=== PATIENT | female | born 1990 | race Caucasian/White ===

== ENCOUNTER 2021-07-19 15:09 | Outpatient (CLI) | payer OTHER, BC, SELFPAY | END 2021-07-19 15:10 | disposition home or self-care (01) | LOC: ANHLAB 16:02 | PROVIDERS: Visit Provider Obstetrics & Gynecology | DX: O20.0 Threatened abortion (principal) | CPT/HCPCS: 36415; 84702 ==

== ENCOUNTER 2021-07-21 15:26 | Outpatient (CLI) | payer OTHER, BC, SELFPAY | END 2021-07-21 15:27 | disposition home or self-care (01) | LOC: ANHOBOP 15:34 | PROVIDERS: Visit Provider Obstetrics & Gynecology | DX: Z34.90 Encounter for supervision of normal pregnancy, unspecified, unspecified trimester (principal); Z3A.00 Weeks of gestation of pregnancy not specified | CPT/HCPCS: 36415; 84702 ==

== ENCOUNTER 2021-08-12 13:55 | Outpatient (CLI) | payer OTHER, BC, SELFPAY ==
--- NOTE | 2021-08-12 14:07 | ECG_ITS ---
Measurements Intervals [place] Rate: 72 P: 39 WA: 153 QRS: 78 QRSD: 90 T: 5 QT: 343 QTc: 378 Interpretive Statements REDUCED ECG QUALITY BECAUSE OF BASELINE ARTIFACT SINUS RHYTHM GROSSLY NORMAL ECG NO PREVIOUS ECG AVAILABLE FOR COMPARISON Electronically Signed On 08-12-2021 15:55:57 CDT by Tommy Cheatham M.D.
== END 2021-08-12 13:56 | disposition home or self-care (01) ==
LOC: ANHSURGERY 13:59
PROVIDERS: Visit Provider Obstetrics & Gynecology
DX: Z01.818 Encounter for other preprocedural examination (principal); Z72.0 Tobacco use
CPT/HCPCS: 93005

== ENCOUNTER 2021-08-14 02:43 | Day surgery (SDC) | payer OTHER, BC, SELFPAY ==
[2021-08-07 09:48] VITALS: BMI 19.8
--- NOTE | 2021-08-07 10:18 | SUR.PREOP ---
Report to the Outpatient Waiting Room, entrance under the green pavilion located off [facility], at time 0830 on date 08/14/21. OR Time: 1030. - You and your visitor will be asked a series of questions to screen for COVID 19 for your protection. - Only one visitor is allowed at this time. - The patient visitor is requested to leave or wait in car when not with patient. - A mask is required within the hospital. Patients may have clear liquids (water, carbonated beverages, clear teas, apple juice) until 3 hours prior to surgery 0730 with a maximum of 20 ounces. - No food from midnight until time of surgery - Infants may have breast milk until 4 hours before surgery, infant formula 6 hours prior to surgery. - Children will be allowed to drink immediately following surgery. If applicable, please bring a bottle or sippy cup to assist with drinking. Juice, water, soda, and popsicles are readily available. For infants on formula, please bring formula the day of surgery. Pacifiers are allowed. Take the following medications with a SIP of water the morning of surgery: NA Medications to discontinue per physician Clarify discontinuing Ibuprofen per Dr. Melo's instructions. Date to take last dose Per Dr. Melo Please no make-up, nail korean, hairspray, perfume, deodorant, or body powder the day of surgery. No jewelry (including any body piercings) or valuables the day of surgery, leave them at home. Please take a shower or bath the night before, or the morning of, surgery with an antibacterial soap. Wear comfortable, loose fitting clothing. Children are encouraged to wear pajamas. - Jewelry must be removed prior to entering the operating room. Rings and piercings that are not removed may be cut off. - The hospital will not accept responsibility for valuables. - Please leave all valuables, including medications, at home the day of surgery. If you are going home after surgery, a licensed log truck driver must drive you home. - NO public transportation without another adult. - We recommend that an adult stay with you for 24 hours following discharge. - We also recommend that you do not drive, make important decision, drink alcoholic beverages, or take any drugs that were not prescribed by your health care provider for at least 24 hours after your discharge time. For Pediatric surgeries, we recommend two adults accompany the child home (only one inside the building at this time). Follow any additional instructions given to you from your surgeon. If you or anyone in your household have experienced Covid symptoms in the past week, please notify your surgeon or the nurse liaison at the phone number below for possible testing. Telephone instructions given to patient and asked if any additional questions and then verbalized understanding. Patient advised to call surgeon office or pre surgery nurse liaison [phone] if any additional questions.
[2021-08-14] VITALS (8 sets, daily range): BP systolic 99–118; BP diastolic 59–74; PULSE 52–80; RESP 12–18; TEMP 36.6–37.4; O2SAT 100
[2021-08-14] MEDS: LACTATED RINGERS 1,000 ML 30 ML IV CONT ×2 (09:00→12:20)
[2021-08-14] MEDS: KETOROLAC 15 MG/ML VIAL (*BKC) IV PUSH (09:00)
[2021-08-14] MEDS: ACETAMINOPHEN 500 MG TABLET 1000 MG PO (09:00)
--- NOTE | 2021-08-14 09:58 | P.PNAN_ITS ---
Anes - Initial Pre Proc Eval Procedure: Operation Date: 08/14/21 10:30 Proposed Procedures p Laparoscopic Left Ovarian Cystectomy - Jaime Melo MD Date/Time: 08/14/21 09:58 Surgeon: Jaime Melo MD Pre Op Diagnosis: dermoid cyst Patient Data Age: 31 Gender: F Height: 1.6 m Weight: 49.8 kg Last Vital Signs Temp 99.3 F 08/14/21 08:44 Pulse 66 08/14/21 08:44 Resp 18 08/14/21 08:44 BP 105/71 08/14/21 08:44 Pulse Ox 100 08/14/21 08:44 O2 Del Method Room Air 08/14/21 08:44 Allergies Allergy/AdvReac Type Severity Reaction Status Date / Time strawberry Allergy Mild scratchy Verified 08/14/21 09:03 throat Home Medications Medication Instructions Recorded Confirmed Type ibuprofen 300 mg tablet 600 mg PO Q6H PRN Pain 08/07/21 08/14/21 History Patient hx anesthesia problems: none Family hx anesthesia problems: none Results Review: All pre-operative results and documents have been reviewed as part of the pre- operative evaluation. [facility] Past Medical History Medical History (Updated 08/14/21 @ 09:58 by Reese Chow MD) Anxiety Depression Migraine Social History Social History Smoking packs per day: 1 Smoking cigarettes per day: 20.0 Years smoked: 21 Smoking pack-years: 21.00 Smoking status: Current every day smoker Tobacco type: cigarettes Alcohol intake: current Drinks per week: 2 Living arrangements: with family Spiritual care concerns: No Anes - Eval Final PreProcedure Day of Procedure 08/14/21 09:58 Patient weight: normal Heart: regular rate and rhythm Lungs: clear to auscultation Airway: Mallampati scale class II Neurological: alert and oriented Last oral intake: >/= 8 hours ASA classification: II Emergent: no Anesthetic plan: proceed Anesthesia type and monitoring: general ETT and standard monitoring Results Review: All pre-operative results and documents have been reviewed as part of the pre-operative evaluation. Informed Consent: The patient's anesthetic plan and its attendant risks and benefits were discussed with the patient/family/POA. Questions were solicited and answers provided to the satisfaction of the patient/family/POA.
--- NOTE | 2021-08-14 10:20 | WPDHPUPDATE1 ---
History and Physical Update Update Date/Time: 08/14/21 10:20 History and Physical has been reviewed, including an updated exam of the patient. There are NO changes in the patient's condition. Risks, benefits, and alternatives have been discussed and questions answered. Patient agrees to proceed with procedure.
--- NOTE | 2021-08-14 12:26 | W.PM.PROC2 ---
Procedure Note - Detailed Date of Procedure 08/14/21 Pre-op Diagnosis dermoid cyst Post-op Diagnosis Same (And endometriosis, pelvic adhesions) Procedure Performed Laparoscopic left ovarian cystectomy, peritoneal biopsy, adhesiolysis. Surgeon Jaime Melo MD Anesthesia General Indications Pelvic pain Findings Left ovarian hemorrhagic cyst and dermoid cyst together occupying about 5-6 cm space, there was endometrial implants throughout posterior cul-de-sac and right left pelvic sidewall. Normal-appearing right ovary, normal appearing fallopian tubes, uterus was adherent to the anterior pelvic wall. Description of Procedure The patient was taken to the operating room. She was prepped and draped in the dorsal lithotomy position after induction general anesthesia. A 5 mm incision was made with a scalpel on the abdominal skin in the left upper quadrant of the abdomen. A 5 mm trocar was inserted into the intra-abdominal cavity under direct visualization the scope. In the same fashion a 11 mm left lower quadrant trocar was inserted and a 11 mm infraumbilical trocar was inserted. 30 minutes of adhesiolysis was performed initially to free the ovary up from the left pelvic sidewall. The left ovary contained a hemorrhagic cyst and a dermoid cyst. Both were removed sharp and blunt dissection. A peritoneal biopsy was performed. A small 5 mm diameter area was removed from the posterior cul-de-sac of the pelvis right of the rectum. There was endometriosis throughout the pelvis. Interceed was placed over the left hemipelvis where the dissection and adhesiolysis had occurred. The left ureter was exposed. It was intact. The pelvis was irrigated. The pneumoperitoneum was reduced. The trocars were removed. Skin was closed with subcuticular 4 micro. The patient's incisions were covered with Dermabond. She was taken recovery room in stable condition. Sponge lap and needle counts were correct x2. Estimated Blood Loss -50.0 Complications No immediate complications Condition Stable Disposition Same day
[2021-08-14] MEDS: fentaNYL CITRATE INJ (*CRX) 100 MCG/2 ML VIAL 25 MCG IV PUSH ×2 (12:34→12:59)
--- NOTE | 2021-08-14 12:46 | SUR.PHASEI ---
1245: Simple mask removed.
[2021-08-14] MEDS: oxyCODONE HCL (*CRX) 5 MG TAB IR PO (13:24)
== END 2021-08-14 14:13 | disposition home or self-care (01) ==
PROVIDERS: Visit Provider Obstetrics & Gynecology
PROC: (CPT 49320; principal; 2021-08-14 10:30)
DX: D27.1 Benign neoplasm of left ovary (principal); N73.6 Female pelvic peritoneal adhesions (postinfective); N80.3 Endometriosis of pelvic peritoneum; N80.1 Endometriosis of ovary; R10.2 Pelvic and perineal pain; F17.210 Nicotine dependence, cigarettes, uncomplicated
CPT/HCPCS: 58662; 88305; A9270; J1100; J1885; J2250; J2405; J2704; J2710; J3010; J7030; J7120

== ENCOUNTER 2022-01-11 08:36 | Emergency (ER) | payer OTHER, BC, SELFPAY ==
[2022-01-11 08:46] VITALS: BP 106/61; PULSE 86; RESP 24; TEMP 37.6; O2SAT 100
--- NOTE | 2022-01-11 08:59 | ED.URI ---
HPI - URI/Sore Throat General Chief Complaint: Upper Respiratory Infection Stated Complaint: Fever, Sore Throat Time Seen by Provider: 01/11/22 08:59 History of Present Illness HPI Narrative: 31-year-old female presented for complaints of headache, body aches, sinus pressure/congestion, cough, fever/chills. Onset last night. She endorses her tested positive for COVID 6 days ago. She denies shortness of breath, wheezing, vomiting or diarrhea. She endorses her temperature was a 103? last night. She is not taking anything for symptoms. She is a current smoker 2 packs per day. Related Data Home Medications Medication Instructions Recorded Confirmed ibuprofen 300 mg tablet 600 mg PO Q6H PRN Pain 08/07/21 08/14/21 Allergies Allergy/AdvReac Type Severity Reaction Status Date / Time strawberry Allergy Mild scratchy Verified 08/14/21 09:03 throat Review of Systems Review of Systems: ROS per HPI [facility] Past Medical History Medical History Anxiety Depression Migraine Social History Social History Smoking packs per day: 1 Smoking cigarettes per day: 20.0 Years smoked: 21 Smoking pack-years: 21.00 Smoking status: Current every day smoker Tobacco type: cigarettes Alcohol intake: current Drinks per week: 2 Spiritual care concerns: No Exam Narrative: GENERAL: Ill-appearing, no acute distress. EYES: conjunctivae clear ENT: Mucous membranes moist. TMs pearly babin with normal light reflex bilaterally; no tragal tenderness. Oropharynx erythematous without lesions. Tonsils enlarged 1+ and without exudate. No drooling, no hoarseness, no trismus, uvula midline. No tripod positioning, hot potato voice, or soft palate swelling. CHEST: Clear to auscultation, breath sounds equal. No respiratory distress, speaks in full sentences. HEART: Regular rate and rhythm. No murmur heard. SKIN: Warm, dry, no rash. NEURO: Alert and oriented x3. Course Course Emergency Course: Patient is aware of diagnosis, understands and agrees to treatment plan. Anticipatory guidance given. Patient agrees to follow-up as directed and is aware of reasons to seek care at the emergency department. Portions of this record may have been created with voice recognition software Level of Care: Express Care Visit Vital Signs Vital signs: Vital Signs Temperature 99.6 F 01/11/22 08:46 Pulse Rate 86 01/11/22 08:46 Respiratory Rate 24 H 01/11/22 08:46 Blood Pressure 106/61 01/11/22 08:46 Pulse Oximetry 100 01/11/22 08:46 Oxygen Delivery Room Air 01/11/22 08:46 Temperature 99.6 F 01/11/22 08:46 Pulse Rate 86 01/11/22 08:46 Respiratory Rate 24 H 01/11/22 08:46 Blood Pressure 106/61 01/11/22 08:46 Pulse Oximetry 100 01/11/22 08:46 Oxygen Delivery Room Air 01/11/22 08:46 MDM - URI/Sore Throat MDM Narrative Medical decision making narrative: covid positive, negative flu. Results reviewed with pt. Advise supportive treatments. Patient is appropriate for outpatient treatment and follow-up. Differential Diagnosis Differential diagnosis: Likely upper respiratory infection, viral infection and pharyngitis Discharge Plan Discharge Clinical Impression: COVID-19 Patient Disposition: Home, Self-Care Condition: Stable Instructions: How to Stop Smoking (ED), COVID-19 (Coronavirus Disease 2019) (ED) Additional Instructions: Your rapid COVID test was positive today. The following recommendations have been made by the CDC and local Health Departments, regarding COVID-19: -Those individuals with mild cases of COVID-19 can generally be discontinued from isolation 5 days AFTER the onset of symptoms AND the resolution of fever for 24hrs (without the use of fever-reducing medications)* -When you return to public, wear a mask at all times for an additional 5 days
== END 2022-01-11 09:17 | disposition home or self-care (01) ==
PROVIDERS: Emergency Provider Nurse Practitioner Family
DX: U07.1 COVID-19 (principal); F17.210 Nicotine dependence, cigarettes, uncomplicated
CPT/HCPCS: 87426; 87804; 99213; C9803; G0463